=== PATIENT | male | born 1985 | race Caucasian/White ===

== ENCOUNTER 2016-11-20 18:03 | Emergency (ER) | payer BC ==
[~2016-11-20] VITALS: Ht 167.6 cm; Wt 70.3 kg
[2016-11-20 18:12] VITALS: BP_SYST 124
[2016-11-20] MEDS ORDERED: HYDROcodone/ACETAMIN 7.5-325 MG TAB PO ONE (19:15)
[2016-11-20 19:32] VITALS: BP_SYST 126
== END 2016-11-20 19:32 | disposition home or self-care (01) ==
LOC: SED 18:03
DX: S89.92XA Unspecified injury of left lower leg, initial encounter (principal); W18.39XA Other fall on same level, initial encounter; Y93.67 Activity, basketball; Y92.39 Other specified sports and athletic area as the place of occurrence of the external cause; Y99.8 Other external cause status
CPT/HCPCS: 73564; 99284

== ENCOUNTER 2022-03-07 16:34 | Emergency (ER) | payer BC ==
[~2022-03-07] VITALS: Ht 167.6 cm; Wt 74.8 kg
[2022-03-07 16:40] VITALS: BP_SYST 157
--- NOTE | 2022-03-07 16:45 | NUR ---
Patient triaged and placed in waiting room. VSS and patient appears in no acute distress at this time. Accompanied by SELF, awaiting available bed, and MD notified of need for MSE.
--- NOTE | 2022-03-07 18:00 | NUR ---
Patient to ER bed CH1 to gown for evaluation. Side rails up.
--- NOTE | 2022-03-07 18:22 | NUR ---
ER DR. BHARDWAJ EXAMINING PT
[2022-03-07 18:53] VITALS: BP_SYST 157
--- NOTE | 2022-03-07 18:53 | NUR ---
Patient given written and verbal discharge instructions and verbalizes understanding. ER MD discussed with patient the results and treatment provided. Patient in stable condition. ID arm band removed. NO Rx given. Patient educated on pain management and to follow up with PMD. Pain Scale 0/10. Opportunity for questions provided and answered. Medication side effect fact sheet provided.
== END 2022-03-07 18:53 | disposition home or self-care (01) ==
LOC: SED 16:34
DX: R09.1 Pleurisy (principal); R07.9 Chest pain, unspecified; R11.0 Nausea; R19.7 Diarrhea, unspecified; Z79.899 Other long term (current) drug therapy
CPT/HCPCS: 71045; 93005; 99283

== ENCOUNTER 2023-09-29 22:58 | Emergency (ER) | payer BC, OTHER ==
[~2023-09-29] VITALS: Ht 167.6 cm; Wt 72.6 kg
[2023-09-29 23:23] VITALS: BP_SYST 135; PULSE 90; RESP 19; TEMP 97.5; O2SAT 97
[2023-09-30] MEDS ORDERED: DOXY100C5 PO (00:10)
[2023-09-30 00:15] VITALS: BP_SYST 135; PULSE 90; RESP 19; TEMP 97.5; O2SAT 97
== END 2023-09-30 00:15 | disposition home or self-care (01) ==
LOC: SED 22:58
DX: L73.8 Other specified follicular disorders (principal); Z90.49 Acquired absence of other specified parts of digestive tract; Z79.899 Other long term (current) drug therapy
CPT/HCPCS: 99283